=== PATIENT | male | born 1960 | race Asian ===

== ENCOUNTER 2017-11-21 03:56 | Emergency (ER) | payer MEDICAID, OTHER ==
[~2017-11-21] VITALS: Ht 170.2 cm; Wt 94.5 kg
[2017-11-21] MEDS ORDERED: SIMV-261 PO (04:06)
[2017-11-21] MEDS ORDERED: ASPI-1182 PO (04:06)
[2017-11-21] MEDS ORDERED: OMEP20 PO (04:06)
[2017-11-21] MEDS ORDERED: LISI-661 PO (04:06)
[2017-11-21] MEDS ORDERED: MECL-111 PO (04:06)
[2017-11-21] MEDS ORDERED: METO25TA6 PO (04:06)
[2017-11-21] MEDS ORDERED: ISOS10TA16 PO (04:06)
[2017-11-21 04:38] LABS: BASOPHILS % (AUTO) 1.1 % (0.0-2.0); EOSINOPHILS % (AUTO) 7.6 % (1.0-6.0); HEMATOCRIT 48.7 % (41-53); HEMOGLOBIN 16.5 g/dL (13.5-17.5); LYMPHOCYTES # (AUTO) 7.1 K/uL (1.0-4.8); LYMPHOCYTES % (AUTO) 46.9 % (22.0-44.0); MEAN CORPUSCULAR VOLUME 94 fL (80-100); MONOCYTES # (AUTO) 1.2 K/uL (0.1-1.0); MONOCYTES % (AUTO) 7.7 % (2.0-9.0); NEUTROPHILS # (AUTO) 5.6 K/uL (1.8-7.7); NEUTROPHILS % (AUTO) 36.7 % (40.0-70.0); PLATELET COUNT (AUTO) 242 K/uL (150-450); RED BLOOD CELL COUNT(AUTO) 5.18 MIL/uL (4.50-5.90); RED CELL DISTRIBUTION WIDTH 13.6 % (11.5-14.5)
[2017-11-21 04:45] LABS: INR 1.1 (0.9-1.1); PROTHROMBIN TIME 11.3 SEC (9.4-11.6)
[2017-11-21 05:06] LABS: B-TYPE NATRIURETIC PEPTIDE 8 pg/mL (0-100)
[2017-11-21 05:12] LABS: ALANINE AMINOTRANSFERASE 55 U/L (12-78); ALBUMIN 3.7 g/dL (3.4-5.0); ALKALINE PHOSPHATASE 78 U/L (46-116); ANION GAP 13 mmol/L (8-16); ASPARTATE AMINOTRANSFERASE 31 U/L (15-37); BILIRUBIN,TOTAL 0.9 mg/dL (0.1-1.0); CALCIUM, TOTAL 8.8 mg/dL (8.8-10.5); CARBON DIOXIDE 24 mmol/L (22-29); CHLORIDE 103 mmol/L (98-107); CREATINE KINASE MB 1.1 ng/mL (0-5); CREATINE KINASE, TOTAL 101 U/L (39-308); CREATININE 1.09 mg/dL (0.60-1.30); GLOMERULAR FILTR. RATE CALC > 60 mL/min (>60); GLUCOSE,RANDOM 201 mg/dL (70-110); LIPASE 157 U/L (73-393); POTASSIUM 3.6 mmol/L (3.5-5.1); SODIUM SERUM 140 mmol/L (136-145); TOTAL PROTEIN, SERUM 7.5 g/dL (6.4-8.2)
[2017-11-21 05:28] LABS: UREA NITROGEN, BLOOD 15 mg/dL (7-18)
[2017-11-21] MEDS: ONDANSETRON HCL 4 MG/2 ML VIAL IVP ONE (05:49)
[2017-11-21] MEDS: FentaNYL CITRATE-PF 100 MCG/2 ML VIAL IVP ONE (05:49)
[2017-11-21 06:26] LABS: APPEARANCE,URINE CLEAR (CLEAR); BILIRUBIN,URINE NEGATIVE (NEGATIVE); GLUCOSE, URINE (UA) NEGATIVE (NEGATIVE); KETONES,URINE NEGATIVE (NEGATIVE); LEUKOCYTE ESTERASE ,URINE NEGATIVE (NEGATIVE); NITRATE,URINE NEGATIVE (NEGATIVE); OCCULT BLOOD,URINE NEGATIVE (NEGATIVE); PH,URINE 6.5 (5.0-8.0); PROTEIN,URINE NEGATIVE (NEGATIVE)
[2017-11-21] MEDS: SODIUM CHLORIDE 0.9% 1,000 ML IV ONE (06:28)
[2017-11-21] MEDS: KETOROLAC TROMETHAMINE 30 MG/ML VIAL IVP ONE (06:33)
[2017-11-21] MEDS: METOCLOPRAMIDE HCL 5 MG/ML 2 ML VIAL IVP ONE (08:23)
[2017-11-21] MEDS: DiphenhydrAMINE HCL 50 MG/ML VIAL IVP ONE (08:23)
[2017-11-21] MEDS: ACETAMINOPHEN 1000 MG/ISO-OSM 100 ML IV ONE (08:24)
[2017-11-21 09:10] VITALS: BP 110/73
== END 2017-11-21 09:43 | disposition home or self-care (01) ==
LOC: EMS 03:57
DX: R10.84 Generalized abdominal pain (principal); R51 Headache; R74.8 Abnormal levels of other serum enzymes; R42 Dizziness and giddiness; I11.9 Hypertensive heart disease without heart failure; Z95.1 Presence of aortocoronary bypass graft; Z79.82 Long term (current) use of aspirin
CPT/HCPCS: 36415; 70450; 71045; 80053; 81003; 82550; 82553; 83690; 83880; 84484; 85025; 85610; 85730; 93005; 96361; 96365; 96375; 99285; J0131; J1200; J1885; J2405; J2765; J3010; J7030